=== PATIENT | male | born 1945 | race Caucasian/White ===

== ENCOUNTER 2020-02-18 14:26 | Outpatient (REF) | payer MEDICARE, SELFPAY | END 2020-02-18 14:27 | disposition home or self-care (01) | LOC: HO.HOSX 14:26 | PROVIDERS: Visit Provider Orthopaedic Surgery | DX: Z13.89 Encounter for screening for other disorder (principal) ==

== ENCOUNTER 2020-02-19 11:01 | Outpatient (REF) | payer MEDICARE, SELFPAY ==
--- NOTE | 2020-02-19 11:12 | XR_ITS ---
EXAMINATION: BILATERAL KNEES STANDING. RIGHT KNEE. CLINICAL INFORMATION: Pain right knee. COMPARISON: None TECHNIQUE: AP bilateral knee standing. Right knee lateral view. FINDINGS: AP bilateral knee: There is total right knee prosthesis in good alignment. There is mild reduction in medial compartment joint space left knee. The lateral compartment joint space is normal. Right knee: Single lateral view of right knee reveals total right knee prosthesis. There is mild suprapatellar joint effusion suspected. No loose body seen. Soft tissues are normal. 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 There is mild joint effusion on the lateral view. No acute fracture or prosthetic loosening seen. There is mild degenerative changes medial and lateral compartment.
--- NOTE | 2020-02-19 11:12 | XR_ITS ---
EXAMINATION: BILATERAL KNEES STANDING. RIGHT KNEE. CLINICAL INFORMATION: Pain right knee. COMPARISON: None TECHNIQUE: AP bilateral knee standing. Right knee lateral view. FINDINGS: AP bilateral knee: There is total right knee prosthesis in good alignment. There is mild reduction in medial compartment joint space left knee. The lateral compartment joint space is normal. Right knee: Single lateral view of right knee reveals total right knee prosthesis. There is mild suprapatellar joint effusion suspected. No loose body seen. Soft tissues are normal. 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 There is mild joint effusion on the lateral view. No acute fracture or prosthetic loosening seen. There is mild degenerative changes medial and lateral compartment.
== END 2020-02-19 11:02 | disposition home or self-care (01) ==
LOC: HO.HOSX 11:01
PROVIDERS: PCP Internal Medicine; Visit Provider Orthopaedic Surgery
DX: M25.561 Pain in right knee (principal); M25.562 Pain in left knee; Z96.651 Presence of right artificial knee joint
CPT/HCPCS: 73560; 73565; 99212